=== PATIENT | female | born 1950 | race Caucasian/White ===

== ENCOUNTER 2017-10-05 13:06 | Emergency (ER) | payer OTHER ==
[~2017-10-05] VITALS: Ht 172.7 cm; Wt 66.7 kg
--- NOTE | ~2017-10-05 | EKG ---
[place] [address] [facility] [place] [address] ELECTROCARDIOGRAM REPORT Name: LEAH MISHRA [id number] Admission: 10/05/17 Attend Phys: Discharge: 10/05/17 Date of : 48 Report #: [id number] THIS REPORT FOR: //name// [facility] ED Test Date: 2017-10-05 Test Time: 13:54:26 Pat Name: MARIEL MISHRA Department: Room: Gender: F Ambulance Dispatcher: ASHWIN : 1950 Requested By: Chung Cerda Order Number: [id number] MD: Akhil Giles Measurements Intervals [place] Rate: 70 P: 73 MN: 138 QRS: 9 QRSD: 102 T: 14 QT: 430 QTc: 464 Interpretive Statements Sinus arrhythmia Atrial premature complex Abnormal R-wave progression, early transition No previous ECG available for comparison Electronically Signed On 10-08-2017 9:07:46 CDT by Akhil Giles [email or web address] <ELECTRONICALLY SIGNED> By: Akhil Giles MD, [facility] 10/08/17 0907 1354 1354 Akhil Giles MD, FACC /EPI
[2017-10-05 14:08] LABS: ABSOLUTE NEUTROPHILS 7.8 thou/uL (1.4-8.2); BASOPHILS 1.4 % (0.0-2.0); EOSINOPHILS 0.3 % (0.0-3.0); HEMATOCRIT 45.8 % (37.0-47.0); HEMOGLOBIN 16.1 gm/dL (12.0-15.0); LYMPHOCYTES 20.8 % (24.0-44.0); MCH 32.3 pg (26.0-34.0); MCHC 35.1 g/dL (28.0-37.0); MCV 91.9 fL (80.0-100.0); MONOCYTES 7.3 % (1.0-8.0); PLATELET COUNT 209 thou/uL (150-400); POLYS 70.2 % (36.0-66.0); RBC 4.98 mil/uL (4.20-5.00); RDW 12.2 % (10.5-14.5); WBC 11.1 thou/uL (4.0-11.0)
[2017-10-05 14:24] LABS: CALCIUM 9.8 mg/dL (8.5-10.1)
[2017-10-05 14:28] LABS: TROPONIN-I 0.06 ng/mL (<0.06)
[2017-10-05] MEDS ORDERED: CHLORDIAZEPOXID25 M1 PO (17:15)
[2017-10-05] MEDS ORDERED: CATAPRES0.1 MG PO (17:16)
[2017-10-05 17:34] VITALS: BP 153/89
== END 2017-10-05 17:36 | disposition home or self-care (01) ==
LOC: ER 13:06
PROVIDERS: Physician Assistant
DX: F11.23 Opioid dependence with withdrawal (principal); R11.2 Nausea with vomiting, unspecified; R56.9 Unspecified convulsions; I10 Essential (primary) hypertension; M19.90 Unspecified osteoarthritis, unspecified site; E89.0 Postprocedural hypothyroidism

== ENCOUNTER → 2018-02-18 | Outpatient (CLI) | payer OTHER ==
[~2018-02-18] MED LIST: CATAPRES0.1 MG PO; CHLORDIAZEPOXID25 M1 PO
== END ==
LOC: CAT 15:53
DX: Z13.6 Encounter for screening for cardiovascular disorders (principal); E78.00 Pure hypercholesterolemia, unspecified

== ENCOUNTER 2018-10-23 17:04 | Emergency (ER) | payer OTHER ==
[~2018-10-23] VITALS: Ht 172.7 cm; Wt 74.8 kg
[2018-10-23 17:30] LABS: ABSOLUTE NEUTROPHILS 3.9 thou/uL (1.4-8.2); BASOPHILS 0.8 % (0.0-2.0); EOSINOPHILS 1.7 % (0.0-3.0); HEMATOCRIT 41.4 % (37.0-47.0); HEMOGLOBIN 14.1 gm/dL (12.0-15.0); LYMPHOCYTES 29.7 % (24.0-44.0); MCH 32.6 pg (26.0-34.0); MONOCYTES 8.2 % (1.0-8.0); PLATELET COUNT 171 thou/uL (150-400); POLYS 59.6 % (36.0-66.0); RBC 4.31 mil/uL (4.20-5.00); RDW 12.7 % (10.5-14.5); WBC 6.6 thou/uL (4.0-11.0)
[2018-10-23 17:39] LABS: ANION GAP 11 mmol/L (7-16); BUN 19 mg/dL (7-18); CALCIUM 8.7 mg/dL (8.5-10.1); CHLORIDE 106 mmol/L (98-107); CO2 26 mmol/L (21-32); GLUCOSE 81 mg/dL (74-106); POTASSIUM 3.5 mmol/L (3.5-5.1); SODIUM 143 mmol/L (136-145)
[2018-10-23 17:48] LABS: TROPONIN-I <0.06 ng/mL (<0.06)
[2018-10-23 18:21] LABS: URINE BILIRUBIN NEGATIVE (Negative); URINE BLOOD NEGATIVE (Negative); URINE CLARITY CLEAR; URINE COLOR YELLOW; URINE GLUCOSE-RANDOM* NEGATIVE (Negative); URINE KETONES NEGATIVE (Negative); URINE LEUKOCYTES-REFLEX NEGATIVE (Negative); URINE NITRITE-REFLEX NEGATIVE (Negative); URINE PROTEIN (DIPSTICK) NEGATIVE (Negative); URINE UROBILINOGEN 0.2 E.U./dl (0.2-1.0)
[2018-10-23 18:28] LABS: AMP/METHAMP Negative (Negative); BARBITURATES Negative (Negative); BENZODIAZEPINES Negative (Negative); COCAINE Negative (Negative); METHADONE Negative (Negative); OPIATES Negative (Negative); PCP Negative (Negative)
[2018-10-23] MEDS ORDERED: SYNTHROID150 MCG PO (18:46)
[2018-10-23] MEDS ORDERED: HYDROCHLOROTH12.5 M1 PO (18:47)
[2018-10-23] MEDS ORDERED: ATIVAN0.5 MG PO (18:47)
[2018-10-23] MEDS ORDERED: QUALAQUIN324 MG PO (18:49)
[2018-10-24 20:15] VITALS: BP 104/54
--- NOTE | 2018-10-27 17:50 | EKG ---
[place] [address] [place] [address] ELECTROCARDIOGRAM REPORT Name: LEAH MISHRA Room #: DEP [facility]#: [id number] ������������������ Admission: 10/23/18 ������������������ Attend Phys: Discharge: 10/24/18 ������������������ Date of : 48 Report #: [id number] ����������������������������������������������������������������� [id number] THIS REPORT FOR: //name// [facility] ED Test Date: 2018-10-23 Test Time: 17:19:37 Pat Name: LEAH MISHRA Department: Room: Gender: F Binding Printer: : 1950 Requested By: Jr Ramirez Order Number: [id number] MD: Akhil Giles Measurements Intervals [place] Rate: 70 P: 66 SD: 152 QRS: 25 QRSD: 95 T: 63 QT: 415 QTc: 448 Interpretive Statements Sinus rhythm Abnormal R-wave progression, early transition Compared to ECG 10/05/2017 13:54:26 Atrial premature complex(es) no longer present Electronically Signed On 10-27-2018 17:50:35 CDT by Akhil Giles [email or web address] ��������������������������������������������� <ELECTRONICALLY SIGNED> ���������������������������������������� By: Akhil Giles MD, [facility] ��������������������������������������������� 10/27/18 1750 1719 18 Akhil Giles MD, FAC /EPI
== END 2018-10-24 20:16 ==
LOC: ER 17:04
PROVIDERS: Emergency Medicine
DX: F32.2 Major depressive disorder, single episode, severe without psychotic features (principal); R53.1 Weakness; I10 Essential (primary) hypertension; M19.90 Unspecified osteoarthritis, unspecified site; K21.9 Gastro-esophageal reflux disease without esophagitis; E89.0 Postprocedural hypothyroidism; Z90.710 Acquired absence of both cervix and uterus; F17.210 Nicotine dependence, cigarettes, uncomplicated

== ENCOUNTER → 2019-12-08 | Outpatient (CLI) | payer OTHER ==
[~2019-12-08] MED LIST changes: +ATIVAN0.5 MG PO; +HYDROCHLOROTH12.5 M1 PO; +QUALAQUIN324 MG PO; +SYNTHROID150 MCG PO
[2019-12-08 13:13] LABS: CREATININE 0.9 mg/dL (0.6-1.0)
== END ==
LOC: MRI 12:03
PROVIDERS: ATTEND Ophthalmology
DX: H05.242 Constant exophthalmos, left eye (principal); H05.20 Unspecified exophthalmos; D32.0 Benign neoplasm of cerebral meninges

== ENCOUNTER 2021-02-18 16:00 | Emergency (ER) | payer OTHER ==
[~2021-02-18] VITALS: Ht 172.7 cm; Wt 77.1 kg
[2021-02-18 16:00] VITALS: BP 149/96
[2021-02-18] MEDS ORDERED: TOBRADEX EYE DRO5 ML EA. EYE ×2 (16:43→17:02)
== END 2021-02-18 16:50 | disposition home or self-care (01) ==
LOC: ER 16:00
DX: H10.9 Unspecified conjunctivitis (principal); I10 Essential (primary) hypertension; M19.90 Unspecified osteoarthritis, unspecified site; K21.9 Gastro-esophageal reflux disease without esophagitis; E89.0 Postprocedural hypothyroidism; F17.210 Nicotine dependence, cigarettes, uncomplicated; Z90.710 Acquired absence of both cervix and uterus; Z90.49 Acquired absence of other specified parts of digestive tract; Z90.89 Acquired absence of other organs; Z79.891 Long term (current) use of opiate analgesic; Z79.899 Other long term (current) drug therapy

== ENCOUNTER 2021-02-21 07:24 | Inpatient (IN) | payer OTHER ==
[~2021-02-21] VITALS: Ht 172.7 cm; Wt 78.5 kg
[2021-02-21] VITALS (7 sets, daily range): BP systolic 97–152; BP diastolic 57–97
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
[~2021-02-21 07:24] MED LIST changes: +TOBRADEX EYE DRO5 ML EA. EYE
[2021-02-21 07:59] LABS: ABSOLUTE NEUTROPHILS 4.5 thou/uL (1.4-8.2); BASOPHILS 1.2 % (0.0-2.0); EOSINOPHILS 1.1 % (0.0-3.0); LYMPHOCYTES 22.5 % (24.0-44.0); MCH 32.2 pg (26.0-34.0); MCHC 34.1 g/dL (28.0-37.0); MCV 94.6 fL (80.0-100.0); MONOCYTES 6.3 % (1.0-8.0); PLATELET COUNT 194 thou/uL (150-400); POLYS 68.9 % (36.0-66.0); RBC 4.65 mil/uL (4.20-5.00); RDW 12.7 % (10.5-14.5); WBC 6.6 thou/uL (4.0-11.0)
[2021-02-21 08:06] LABS: CALCIUM 8.9 mg/dL (8.5-10.1); CREATININE 0.7 mg/dL (0.6-1.0); POTASSIUM 3.5 mmol/L (3.5-5.1)
[2021-02-21 08:18] LABS: ALBUMIN 3.4 g/dL (3.4-5.0); TOTAL BILIRUBIN 0.3 mg/dL (0.2-1.0); TOTAL PROTEIN 6.8 g/dL (6.4-8.2)
[2021-02-21 09:04] LABS: INR 0.94; PROTIME 10.3 Seconds (10.5-12.1)
--- NOTE | 2021-02-21 09:05 | EKG ---
[place] [address] [employer] [facility] [place] [address] ELECTROCARDIOGRAM REPORT Name: LEAH MISHRA [facility]: [facility] [id number] Admission: 02/21/21 Attend Phys: Discharge: Date of : 48 Report #: [id number] [facility] ED Test Date: 2021-02-21 Test Time: 07:42:05 Pat Name: LEAH MISHRA Department: Room: Gender: F Automobile Tester: richard : 1950 Requested By: Emilio Luu Order Number: [id number] MD: Akhil Giles Measurements Intervals [place] Rate: 88 P: 83 AR: 145 QRS: 19 QRSD: 96 T: 70 QT: 390 QTc: 472 Interpretive Statements Sinus rhythm Baseline wander in lead(s) V5 Compared to ECG 10/23/2018 17:19:37 No significant changes Electronically Signed On 02-21-2021 9:05:25 ASSISTANT SURVEYOR by Akhil Giles [email or web address] <ELECTRONICALLY SIGNED> By: Akhil Giels MD, [facility] 02/21/21 0905 0742 0742 Akhil Giles MD, FAC /EPI
[2021-02-21] MEDS ORDERED: TOBRAMYCIN-DEXAM5 ML OPHTHALMIC (09:54)
[2021-02-21] MEDS ORDERED: TIZANIDINE HCL4 M2 PO (09:55)
[2021-02-21 10:44] LABS: CHOLESTEROL 235 mg/dL (<200); HDL CHOLESTEROL 59 mg/dL (>40); LDL CHOLESTEROL 124 mg/dL (<100); TRIGLYCERIDE 261 mg/dL (<150); VLDL 52 mg/dL (<40)
--- NOTE | 2021-02-21 13:32 | 2DMMODE ---
[facility] [place] [address] 2 D/M-MODE ECHOCARDIOGRAM Name: LEAH MISHRA [place] Room #: 209-P ADM IN M.R.#: [id number] Admission: 02/21/21 Attend Phys: Neda Pickett MD Discharge: Date of : 48 Report #: [id number] THIS REPORT FOR: cc: Fariha Tucker,Akhil Byers MD [facility] ~ APPROVED REPORT Study performed: 02/21/2021 12:43:26 EXAM: Comprehensive 2D, Doppler, and color-flow Echocardiogram Patient Location: Bedside Room #: 209 Status: routine BSA: 1.91 HR: 94 bpm BP: 152/91 mmHg Rhythm: NSR Other Information Study Quality: Fair/poor apical window. Not all measurements taken. Indications Syncope. Hx: HTN, tobacco abuse. 2D Dimensions IVSd: 11.65 (7-11mm) LVOT Diam: 20.15 (18-24mm) LVDd: 43.17 mm PWd: 8.95 (7-11mm) LVDs: 28.54 (25-40mm) Left Atrium: 32.39 (27-40mm) Aortic Root: 33.79 mm Aortic Valve AoV Peak William.: 0.96 m/s AO Peak Gr.: 3.72 mmHg LVOT Max P.12 mmHg LVOT Max V: 0.88 m/s MALACHI Vmax: 2.92 cm2 Mitral Valve E/A Ratio: 0.8 MV Decel. Time: 179.[address] [facility] [address] [place] [address] 2 D/M-MODE ECHOCARDIOGRAM Name: LEAH MISHRA [place] Room #: 209-P ADM IN M.R.#: [id number] Admission: 02/21/21 Attend Phys: Yoan Chatman Discharge: Date of : 48 Report #: [id number] MV E Max William.: 0.78 m/s MV A William.: 1.03 m/s MV PHT: 52.14 ms Pulmonary Valve PV Peak William.: 0.93 m/s PV Peak Gr.: 3.46 mmHg Tricuspid Valve TR Peak William.: 2.12 m/s RAP Estimate: 5.00 mmHg TR Peak Gr.: 18.00 mmHg PA Pressure: 23.00 mmHg Left Ventricle The left ventricle is normal size. Regional wall motion is not well visualized but grossly normal. There is normal left ventricular wall thickness. Left ventricular systolic function is normal. LVEF is 60%. Mild diastolic dysfunction Right Ventricle The right ventricle is normal size. The right ventricular systolic function is normal. Atria The left atrium size is normal. The right atrium size is normal. Aortic Valve The aortic valve is normal in structure. No aortic regurgitation is present. There is no aortic valvular stenosis. Mitral Valve The mitral valve is normal in structure. There is no mitral valve regurgitation noted. No evidence of mitral valve stenosis. Tricuspid Valve The tricuspid valve is normal in structure. Trace tricuspid regurgitation. Estimated PAP is 23mmHg. Pulmonic Valve Pulmonic valve is not well visualized. There is no pulmonic valvular regurgitation noted. Great Vessels The aortic root is normal in size. Ascending aorta is not well visualized. IVC is normal in size and collapses >50% with inspiration. [facility] [place] [address] 2 D/M-MODE ECHOCARDIOGRAM Name: LEAH MISHRA [place] Room #: 209-P ADM IN M.R.#: [id number] Admission: 02/21/21 Attend Phys: Yoan Chatman Discharge: Date of : 48 Report #: [id number] Pericardium There is no pericardial effusion. <Conclusion> Left ventricular systolic function is normal. Regional wall motion is not well visualized but grossly normal. LVEF is 60%. Mild diastolic dysfunction The aortic valve is normal in structure. No aortic regurgitation or stenosis The mitral valve is normal in structure. No mitral valve regurgitation. Trace tricuspid regurgitation. Estimated pulmnary artery pressure of 23mmHg. There is no pericardial effusion. <ELECTRONICALLY SIGNED> By: Akhil Giles MD, [facility] 02/21/21 1332 133 1332 Akhil Giles MD, FACC /INF
--- NOTE | 2021-02-21 18:30 | NUR ---
PT TO THE UNBIT FROM THE ER. ORIENTED TO ROOM AND BEDSPACE. PT WITH SWELLING AND BRUISING TO L EYE. PT WITH CO'S OF HEADACHE - GIVEN HYDROCODONE X 2 DOSES WITH MOD EFFECT. PT UP THE BATHROOM A LITTLE UNSTEADY ON FEET - SEEN BY PHYS THERAPY THIS AFTERNOON. PT WITH CO'S OF BEING SLEEPY STATING SHE WAS UP AT 0600 AND DOES NOT USUALLY GET OUT OF BED UNTIL 0900. PUPILS CHECKED AND EQUAL AND REACTIVE TO LIGHT. PT BELONGINGS ENT TO SECURITY - PAPER ON CHART. PT APPEARS TO BE RESTING AT THE PRESENT TIME.
[2021-02-22 03:49] VITALS: BP 126/73
[2021-02-22 05:11] LABS: ABSOLUTE NEUTROPHILS 2.1 thou/uL (1.4-8.2); BASOPHILS 0.6 % (0.0-2.0); EOSINOPHILS 1.7 % (0.0-3.0); HEMATOCRIT 40.7 % (37.0-47.0); HEMOGLOBIN 13.5 gm/dL (12.0-15.0); LYMPHOCYTES 46.8 % (24.0-44.0); MCH 32.1 pg (26.0-34.0); MCHC 33.2 g/dL (28.0-37.0); MONOCYTES 9.3 % (1.0-8.0); PLATELET COUNT 180 thou/uL (150-400); POLYS 41.6 % (36.0-66.0); RDW 12.7 % (10.5-14.5)
[2021-02-22 05:16] LABS: CALCIUM 8.5 mg/dL (8.5-10.1); CREATININE 0.7 mg/dL (0.6-1.0); MAGNESIUM 2.1 mg/dL (1.8-2.4)
--- NOTE | 2021-02-22 08:00 | NUR ---
PT IS A&OX4 AND ABLE TO COMMUNICATE ALL WANTS AND NEEDS TO STAFF. PT IS UP WITH SBA TO BR. SHE COMPLAINED OF GENERALIZED PAIN WELL HEAD PAIN, BOTH RATED 6/10, AND WAS MEDICATED WITH EFFECTIVE RELIEF X2 WITH PRN NORCO. PT'S TROPONIN CONTINUES TO BE ELEVATED THIS AM AT 1520, BUT HAS SIGNIFICANTLY IMPROVED SINCE YESTERDAY AFTERNOON (4114), CARDIOLOGY AWARE AND FOLLOWING. PT HAS SIGNIFICANT BRUISING TO LEFT EYE FROM MECHANICAL FALL AT HOME PRIOR TO ADMISSION, AND CONTINUES TO RECEIVE TOBRAMYCIN/DEXAMETHASONE OPTHALMIC DROPS Q6H. REPORT GIVEN TO ONCOMING NURSE.
--- NOTE | 2021-02-22 10:38 | EKG ---
[address] [employer] [place] [address] ELECTROCARDIOGRAM REPORT Name: LEAH MISHRA Room #: 209- ADM IN M.R.#: [id number] Admission: 02/21/21 Attend Phys: Neda Pickett MD Discharge: Date of : 48 Report #: [id number] [facility] Test Date: 2021-02-22 Test Time: 09:22:20 Pat Name: LEAH MISHRA Department: Room: 209 P Gender: F Manager Of Regulatory Affairs: JENAE : 1950 Requested By: Sheyla Keller Order Number: [id number] : Miguel Angel Rodriguez Measurements Intervals [place] Rate: 74 P: 78 SD: 153 QRS: 28 QRSD: 87 T: 133 QT: 379 QTc: 421 Interpretive Statements Sinus rhythm Low voltage, precordial leads Abnormal R-wave progression, early transition Nonspecific T abnormalities, lateral leads Compared to ECG 02/21/2021 07:42:05 Low QRS voltage now present T-wave abnormality now present Electronically Signed On 02-22-2021 10:38:49 FARM CREW LEADER by Miguel Angel Rodriguez [email or web address] <ELECTRONICALLY SIGNED> By: Miguel Angel Rodriguez MD, FACC 02/22/21 1038 1 1 Miguel Angel Rodriguez MD, FACC /EPI
--- NOTE | 2021-02-22 15:58 | NUR ---
met with patient who resides in independent apt with her dog. She reports her dtr has her dog. Patient independent with adls renderer. She continues to drive. Gave patient information on home health care and list of HH agencies. Patient later in day became anxious and wanting to leave AMA. Patient walking down d[address]lass and security stopped her. Patient reports she takes valium for anxiety. casemgt following. No hx of HH care or rehab.
--- NOTE | 2021-02-22 19:36 | NUR ---
Pt became tearful and frustrated and attempted to leave the unit. Maximo was called and pt agreeded to return to her room. Pt expressed feeling anxious and wanting to speak to her doctors. Doctors were unable to come see her this afternoon and will do so in kishan morning. She was given a one time dose of diazepam and orders were placed for prn and scheduled ativan. Pt continues to be off obstetric anaesthetist - "I don't want to be hooked up to any machines".
[2021-02-22 19:39] VITALS: BP 120/65
[2021-02-22 23:41] VITALS: BP 95/60
--- NOTE | 2021-02-23 00:06 | NUR ---
PT C/O DYER GIVEN PRN PAIN MED AND SCHEDULED ANXIETY MED, STILL REFUSING SENIOR COMPENSATION ANALYST OR TO CALL FOR SBA TO BR, EDUCATED ON RISKS FROM HER DECISIONS PT STATED THE MONITOR GAVE HER ANXIETY THIS AFTERNOON AND SHE DIDN'T WANT TO BE HOOKED UP TO ANYTHING, UNDERSTANDS TO REMAIN NPO AFTER MNOC FOR STRESS TEST IN AM. WILL CON'T TO MONITOR PER PPOC
[2021-02-23 04:51] VITALS: BP 131/82
[2021-02-23 08:04] VITALS: BP 144/89
[2021-02-23 12:29] VITALS: BP 146/83
[2021-02-23 15:28] VITALS: BP 135/77
[2021-02-23] MEDS ORDERED: LIPITOR40 MG PO (17:41)
[2021-02-23] MEDS ORDERED: BAYER CHEWABLE81 MG PO (17:41)
[2021-02-23] MEDS ORDERED: SYNTHROID137 MC1 PO (17:41)
[2021-02-23 17:47] VITALS: BP 135/77
== END 2021-02-23 18:30 | disposition home or self-care (01) | DRG 280 ==
LOC: ER 07:24 → 2N 10:11
PROVIDERS: Emergency Medicine; Nurse Practitioner; ADMIT Hospitalist; ATTEND Hospitalist
DX: I21.4 Non-ST elevation (NSTEMI) myocardial infarction (principal); R65.11 Systemic inflammatory response syndrome (SIRS) of non-infectious origin with acute organ dysfunction; S05.12XA Contusion of eyeball and orbital tissues, left eye, initial encounter; Z20.822 Contact with and (suspected) exposure to COVID-19; I65.23 Occlusion and stenosis of bilateral carotid arteries; I10 Essential (primary) hypertension; E89.0 Postprocedural hypothyroidism; M19.90 Unspecified osteoarthritis, unspecified site; S16.1XXA Strain of muscle, fascia and tendon at neck level, initial encounter; S09.90XA Unspecified injury of head, initial encounter; F32.9 Major depressive disorder, single episode, unspecified; F41.9 Anxiety disorder, unspecified; E78.5 Hyperlipidemia, unspecified; F17.210 Nicotine dependence, cigarettes, uncomplicated; G89.29 Other chronic pain; K21.9 Gastro-esophageal reflux disease without esophagitis; Z60.2 Problems related to living alone; R53.81 Other malaise; I25.10 Atherosclerotic heart disease of native coronary artery without angina pectoris; W18.39XA Other fall on same level, initial encounter; Y93.89 Activity, other specified; Z90.710 Acquired absence of both cervix and uterus; Z85.850 Personal history of malignant neoplasm of thyroid; Z79.891 Long term (current) use of opiate analgesic; Z82.49 Family history of ischemic heart disease and other diseases of the circulatory system; Z71.6 Tobacco abuse counseling; Z79.82 Long term (current) use of aspirin; Z79.899 Other long term (current) drug therapy; Y92.89 Other specified places as the place of occurrence of the external cause; Y99.8 Other external cause status; Z95.5 Presence of coronary angioplasty implant and graft
CPT/HCPCS: 10081; 10194

== ENCOUNTER 2021-04-16 13:56 | Inpatient (IN) | payer OTHER ==
[~2021-04-16] VITALS: Ht 172.7 cm; Wt 65.3 kg
[~2021-04-16 13:56] MED LIST changes: +BAYER CHEWABLE81 MG PO; +LIPITOR40 MG PO; +SYNTHROID137 MC1 PO; +TIZANIDINE HCL4 M2 PO; +TOBRAMYCIN-DEXAM5 ML OPHTHALMIC
[2021-04-17 00:10] VITALS: BP 136/85
--- NOTE | 2021-04-17 03:24 | NUR ---
04-17-21 RECEIVED REPORT FROM ED RN MARTHA. PT ARRIVED ON UNIT 0010 PT HAS GOOD ROM WITH STEADY GAIT. PT AAOX4, VS B/P 136/85, P 65, R 16, T 96.3, 02 SAT 94% RA RR EVEN AND NONLABORED ON RA; LUNGS CLEAR, HT RR, ABS SOFT/ACTIVE/ NONTENDER. PT DENIES SI/HI AND PAIN. PT REPORTS BEING DEPRESSED SINCE THE OF HER MOTHER. PT HX HTN, HYPOTHROIDISM AND DEPRESSION. HCP Eduardo LANGFORD NP MESSAGE LEFT. HCP Radha PATINO MD CONTACTED AND ORDERS RECEIVED. LATER ADJUSTED PT BED FOR COMFORT. PT WILL CONTINUE TO BE MONITOR PER [facility] PROTOCOL.
[2021-04-17 07:07] LABS: CHOLESTEROL 260 mg/dL (<200); HDL CHOLESTEROL 58 mg/dL (>40); LDL CHOLESTEROL 148 mg/dL (<100); TC:HDL 4.5 Ratio (Not establshd); TRIGLYCERIDE 272 mg/dL (<150); VLDL 54 mg/dL (<40)
[2021-04-17 08:25] VITALS: BP 122/67
[2021-04-17 09:30] VITALS: BP 122/67
--- NOTE | 2021-04-17 12:33 | NUR ---
Assumed pt care this morning from overnight shift. Pt was in room resting on bed. Pt presented agitated and irritable this morning, and waved staff into room, stating that "all you people here are liars, and you took all of my stuff away- no one here ever tells the truth and you've been keeping me here." Staff asked pt to clarify what pt meant by this statement, and pt, stated that she had her things removed from her room, and that she was had been waiting to se a provider. 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 It was explained to pt that provider would be here to see her in morning to afternoon today. Current medications pt had were explained to her, as well as process for new medications being added to her chart. Pt education on medications was done as well. Pt was hostile during this time, and stated that she did not want to be here, but did answer orientation questions. Pt was oriented to self, time, and situation, though did hesitate at place. Pt initially denied pain, though later reported a headache, for which she was given prn tylenol. Pt given prn valium for agitation at this time. Pt denied any depression at this time, though did present agitated at pt was yelling and screaming at staff. Pt denied hallucinations. Pt denied si/hi. Pt asked for supplies to take a shower. As pt was not a fall risk, pt was given shower supplies to take a shower independently and took a shower at this time. After shower, pt was given nicotine patch- prior to this, pt was yelling that she had not received patch, although this staff had let her know that she would receive patch after showering. Process of medication was once again explained. No current concerns at this time.
[2021-04-17 19:10] VITALS: BP 138/76
[2021-04-18 03:05] LABS: GLYCOHEMOGLOBIN (HGB A1C) 5.5 % (4.8-5.6)
--- NOTE | 2021-04-18 03:37 | NUR ---
04-17-21 CARE TRANSFERRED 0 OBSERVED PT SITTING IN DAY ROOM RECLINER. LATER PT AAOX4, VSS, RR EVEN AND NONLABORED ON RA; LUNGS CLEAR/DIMINISHED, HT RR, ABD SOFT/ACTIVE/NONTENDER. PT DENIES SI/HI AND PAIN. PT PLEASANT, CALM AND COOPEATIVE. DURING COMMUNICATION PT BECAME AGITATED, BUT WAS EASILY REDIRECTED. DURING MEDICATION ADMIN PT HAD NO DIFFICULTIES TAKING MEDICATION WHOLE WITH WATER. LATER PT CAME MULTI TIMES TO NURSING STATION TALKING ABOUT NOT BEING ABLE TO SLEEP, DENIED PAIN. LATER PT REPORTED SHE HAD OVERALL BODY PAIN; UPON REASSESSMENT NOTED PT RESTING WITH EYES CLOSED, AND SNORING AUDIBLE. PT WILL CONTINUE TO BE MONITOR PER [facility] PROTOCOL
[2021-04-18 09:11] VITALS: BP 130/83
[2021-04-18 09:49] VITALS: BP 130/83
--- NOTE | 2021-04-18 12:23 | NUR ---
Harjit was alert and oriented x4 this shift. She presented initially as irritable, withdrawn, and depressed. After sitting and talking with the pt for a while, she became tearful and apologized to this RN for her irritability prior. Pt was given emotional support and reassurance. She spoke about losing her mother and expressed "she was the one I would always go to if I was scared or feeling insecure and now I don't have anybody". She expressed worries about her dog that "I worry he'll pass any day now". She became tearful stating she wants to go home to be with her dog. She denied SI to this RN but made the comment, "I wish they would put me down with him, but for some reason they cherish the human life". She was medication and meal compliant, without difficulty. She endorsed increased anxiety and recieved PRN valium with effectiveness. She did come out to the dayroom and participated in morning group and stayed in the dayroom for a little while playing with a deck of cards, prior to returning to her room. Pt denied physical complaints at this time, will continue to monitor.
[2021-04-18 19:38] VITALS: BP 135/76
[2021-04-18 19:50] VITALS: BP 135/76
--- NOTE | 2021-04-19 01:33 | NUR ---
PATIENT CARE WAS RESUMED AT 1900. SHE WAS AT THE [facility] AREA RELAXING ON CHAIR. SHE IS ALERT AND ORIENTED AMBULATES, ABLE TO VERBALIZE NEEDS. LUNGS ARE CLEAR BS ACTIVE [id number]. SHE C/O PAINS TO HER ABD PRN TYLENOL GIVEN WITH SOME GOOD EFFECT. SHE IS CONTINENT OF BOWEL AND BLADDER. TOOK HER MEDS WHOLE . SHE DENIES AVH/SI/HI. BED IS LOW AND LOCKED. SHE WAS ASKING THE NURSE FOR MORE SLEEPING PILLS. CONTINUE CARE
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
[2021-04-19 09:45] VITALS: BP 132/77
[2021-04-19 10:13] VITALS: BP 132/77
--- NOTE | 2021-04-19 11:33 | NUR ---
PATIENT CARE ASSUMED AT 0700 THIS MORNING. APPROACHED IN HER ROOM WAS IRRITATED WITH STAFF. CLAIMS WAS WOKEN OUT OF DEEP SLEEP SUDDENLY TO TAKE MEDICATION. ADVISED PATIENT IT WAS LEVOTHYROXIN SCHEDULED AT 6 AM. STATES DOES NOT WAKE FULLY UP AND HARD TO SWALLOW. NEEDS TIME TO GET HER BEARINGS IN THE MORNING. PATIENT REASSURED THAT WOULD CONVEY THIS TO NIGHT TIME STAFF TONIGHT. PATIENT APPEARS NERVOUS AND SHAKY. ADMINISTERED HER MORNING MEDICATIONS IN HER ROOM. TOLERATED WELL. TALKED ABOUT DOSAGE ON HER LEVOTHYROXIN MEDICAITONS BEING OFF. EXPLAINED WOULD DISCUSS WITH DOCTOR BUT PATIENT DISCUSSED WITH DR. TREJO WHEN SHE TALKED TO HIM. PATIENT STATES STILL JITTERY AND QUESTIONED MEDICAITON GIVEN YESTERDAY. CLAIMS IT WAS EFFECTIVE. PATIENT ATE 80 PERCENT OF BREAKFAST. HAS BEEN AMBULATING [facility] - MAKES NEEDS KNOWN. STATES ANXIETY LEVEL STILL HIGH - WILL CONTINUE TO MONITOR PATIENT FOR SAFETY AND ADDRESS CONCERNS ACCORDINGLY DAY PROGRESSES ON.
[2021-04-19 19:13] VITALS: BP 130/85
--- NOTE | 2021-04-20 04:28 | NUR ---
04-19-20 CARE TRANSFERRED 1899 OBSERVED PT SITTING IN DAY ROOM RECLINER WATCHING TV. LATER PT AAOX4, VSS, RR EVEN AND NONLABORED ON RA, LUNGS CLEAR, HT RR, ABD SOFT/ACTIVE PT REPORTS LBM TODAY. PT PRESENTS IRRITABLE AND REPORTS SHE IS FEELING LIKE HERSELF AGAIN AND HER IRRITATION IS OVER NOT BEING RELEASED TODAY, SHE IS READY TO GO HOME. PT BEEN CALM AND COOPERATIVE BUT HAS COMMUNICATIED HER DISPLEASURE OVER NOT BEING RELEASED TODAY. PT DENIES SI/HI AND PAIN. DURING MEDICATION ADMIN PT HAD NO DIFFICULTIES TAKING MEDICATION WHOLE. LATER PT REPORTED HAVING A HEADACHE AND PRN TYELNOL ADMIN, UPON REASSESSMENT PT REPORTED PARTIAL PAIN RELIEF. PT REPORTED THAT EXCEDRIN WORKS BETTER. PT BED WAS ADJUSTED FOR COMFORT, PT WILL CONTINUE TO BE MONITOR PER [facility].
[2021-04-20 09:05] VITALS: BP 125/57
[2021-04-20] MEDS ORDERED: NICOTINE1 EACH TRANSDERM (10:56)
[2021-04-20] MEDS ORDERED: DIAZEPAM 5 MG5 M1 PO (10:57)
[2021-04-20] MEDS ORDERED: DESVENLAFAXINE50 M3 PO (10:57)
[2021-04-20] MEDS ORDERED: HYDROCHLOROTHIA25 M1 PO (11:06)
[2021-04-20] MEDS ORDERED: FOLIC ACID1 MG PO (11:08)
[2021-04-20] MEDS ORDERED: PT HOME MEDICATION MISCELL (11:08)
[2021-04-20] MEDS ORDERED: SYNTHROID150 MCG PO (11:08)
--- NOTE | 2021-04-20 11:24 | NUR ---
Fax sent to patient's on-going psychiatrist, Dr. Bryant Aguilar - Continuation of care after discharge information.
--- NOTE | 2021-04-20 11:32 | NUR ---
Phone call to patient's friend, Gogo Murray, regarding transport for discharge. Gogo will pick the patient up at 3:30pm.
[2021-04-20 13:18] VITALS: BP 125/57
[2021-04-20 13:27] VITALS: BP 125/57
--- NOTE | 2021-04-20 13:55 | NUR ---
SW provided patient with information for employment program for senior citizens.
--- NOTE | 2021-04-20 16:57 | NUR ---
Navdeep was alert and oriented x4 this shift. She presented as calm, cooperative, appropriate, and pleasant. She expressed and showed excitement to be discharged today. She denied SI/HI/DYER. She expressed "finally, after 22 years they found something that helps!". She voiced "I finally feel like myself again!". D/C summary was reviewed with pt all questions answered and encouraged to call with any other questions. Pt's friend came to the unit door and picked up pt. This RN walked with pt to security to grab wallet and money, then to the pharmacy to get her medication. Pt and her friend were then walked to the front enterance where pt's friend car was. Pt was stable upon D/C and was discharged with all belongings.
--- NOTE | 2021-04-22 08:34 | D ---
[facility] [address] DISCHARGE SUMMARY Name: LEAH MISHRA Room #: 523A-A [facility] M.R.#: [id number] Admission: 04/16/21 Attend Phys: Tiffany Multani MD Discharge: 04/20/21 Date of : 48 Report #: [id number] THIS REPORT FOR: cc: Fariha Tucker Christine L. DO Kerstein, Andrew H. DO ~ DATE OF SERVICE: 04/20/2021 INPATIENT PSYCHIATRIC EVALUATION ATTENDING PSYCHIATRIST: Orlin Mueller D.O. RN NEONATAL ICU: Mauro Ramirez M.D. DISCHARGE DIAGNOSES: 1. Major depressive disorder, single episode, severe degree, improved. 2. Unspecified anxiety disorder. 3. Tobacco use disorder. 4. Smoking cessation, encouraged her to stop. MEDICAL COMORBIDITIES: As follows, also the patient has a history of alcohol use disorder in remission, hypothyroidism, hypertension and as stated tobacco dependence. The patient is discharging to her home. Aftercare for this patient is as follows: Given referral for employment program for Senior citizens. She is interested in workforce. Friend, Gogo Lazaro, will pick her up at 3:30 today. She is taking care of her dog. Psychiatrist is Dr. Hopkins, fax him for continuation of care. DISCHARGE INSTRUCTIONS: The patient should see outpatient psychiatrist and PCP in the next 30 days. DISCHARGE DIET: Heart healthy. ACTIVITY LEVEL: As tolerated. DISCHARGE MEDICATIONS: Nicotine patch 7 mg transdermal for some more days, desvenlafaxine 50 mg oral daily for major depression, diazepam 5 mg oral t.i.d. refill given for #45 for unspecified anxiety, hydrochlorothiazide 25 mg oral daily at 0900 hours for hypertension, levothyroxine 150 mcg oral daily at 0700 hours for thyroid replacement. It should be noted the patient declined thyroid function testing or testing for malnutrition, which would include B12 and vitamin D; folic acid 5 mg oral daily for supplementation. The patient was given crisis suicide hotline information at time of discharge. LABORATORY DATA: Significant laboratories this admission are as follows, A1c 5.5, estimated average glucose 111, triglycerides 272, cholesterol 260, LDL 148, [facility] [address] [place] [address] DISCHARGE SUMMARY Name: LEAH MISHRA Room #: 523A-A [facility]#: [id number] Admission: 04/16/21 Attend Phys: Tiffany Multani MD Discharge: 04/20/21 Date of : 48 Report #: [id number] HDL 58. COVID-19 serology this admission was negative on 04/19. diet: regular activity level as tolerated, no alcoho, illicit drugs, smokign cessation encouraged REASON FOR ADMISSION: Back on or so April, a 70-year-old female admitted due to increased anxiety over the last 2 weeks. She reported acute stressor being the of her mother and her was one week ago. She has not been able to stop crying and her therapist told her she think she needed inpatient treatment. She has been working on medications with Dr. Mackay, but this is a relatively new relationship. She has tried Effexor with limited results. She wants to try something else. HOSPITAL COURSE: The patient was admitted to Geriatric Psychiatry Unit. Dr. Multani was covering me over the weekend. She started the patient on Pristiq after a short taper up. She was at 50 mg daily. When I assumed the case, she had marked anxiety, was quite tremulous, sitting in a chair. She was on Valium 5 mg b.i.d. I increased it to 5 mg t.i.d. She improved the day prior to discharge. The patient somehow got the idea she could just leave without aftercare in place. I explained to her that this is not the case, so we will continue the hospitalization until today. Once we were able to arrange aftercare. The patient was requesting discharge, so will proceed. no criteria for involuntary admission has been met. Denied SI or HI. Fully oriented. PHYSICAL EXAMINATION: VITAL SIGNS: Temperature 36.2, pulse 95, respirations 17, BP 125/70, sat 93%. MUSCULOSKELETAL: Somewhat unkempt appearance, tall, slow gait. MENTAL STATUS EXAMINATION: Well-developed, age-appearing female. Attention fair. Concentration fair. Speech normal rate, volume, and tone. Thought Process: Linear and goal directed. Thought content focused on discharge, wanting to reunite with her dog, a 10-year-old, Jerky. Mood and affect okay, congruent, euthymic, again denied SI or HI. Denied helplessness and hopelessness. Memory not formally tested. Insight and judgment fair to limited. Fund of knowledge, slightly below average. Prognosis for this patient is fair to guarded depending on her compliance with psychiatric treatment, keeping herself structured, avoiding alcohol, recreational drugs, and continue with smoking cessation. [facility] [address] [place] [address] DISCHARGE SUMMARY Name: LEAH MISHRA Room #: 523A-A [facility] IN .R.#: [id number] Admission: 04/16/21 Attend Phys: Tiffany Multani MD Discharge: 04/20/21 Date of : 48 Report #: [id number] greater than 40 minutes spent on discharge activities <ELECTRONICALLY SIGNED> By: Orlin Mueller DO 04/22/21 0834 1930 22 Orlin Mueller DO /nt
== END 2021-04-20 15:40 | disposition home or self-care (01) | DRG 885 ==
LOC: SBH → EROBS 23:26 → SBH 23:26
PROVIDERS: ADMIT Psychiatry & Neurology Psychiatry; ATTEND Psychiatry & Neurology Psychiatry
DX: F32.2 Major depressive disorder, single episode, severe without psychotic features (principal); E43 Unspecified severe protein-calorie malnutrition; R45.851 Suicidal ideations; F43.10 Post-traumatic stress disorder, unspecified; F41.9 Anxiety disorder, unspecified; Z20.822 Contact with and (suspected) exposure to COVID-19; E03.9 Hypothyroidism, unspecified; I10 Essential (primary) hypertension; F10.20 Alcohol dependence, uncomplicated; F12.10 Cannabis abuse, uncomplicated; F17.210 Nicotine dependence, cigarettes, uncomplicated; F43.21 Adjustment disorder with depressed mood; Z68.21 Body mass index [BMI] 21.0-21.9, adult; Z71.6 Tobacco abuse counseling; Z82.49 Family history of ischemic heart disease and other diseases of the circulatory system; Z83.6 Family history of other diseases of the respiratory system
CPT/HCPCS: 10880

== ENCOUNTER 2021-04-16 18:56 | Emergency (ER) | payer OTHER ==
[~2021-04-16] VITALS: Ht 180.3 cm; Wt 79.8 kg
[2021-04-17 00:12] VITALS: BP 138/89
== END 2021-04-17 00:13 | disposition admitted as inpatient to this hospital (09) ==
LOC: ER 18:56
PROVIDERS: Emergency Medicine
DX: R45.1 Restlessness and agitation (principal); Z20.822 Contact with and (suspected) exposure to COVID-19; I10 Essential (primary) hypertension; M19.90 Unspecified osteoarthritis, unspecified site; F41.9 Anxiety disorder, unspecified; E78.5 Hyperlipidemia, unspecified; F32.9 Major depressive disorder, single episode, unspecified; F17.210 Nicotine dependence, cigarettes, uncomplicated; Z85.850 Personal history of malignant neoplasm of thyroid; Z90.710 Acquired absence of both cervix and uterus; Z90.89 Acquired absence of other organs; Z79.82 Long term (current) use of aspirin; Z79.899 Other long term (current) drug therapy; Z79.891 Long term (current) use of opiate analgesic